=== PATIENT | female | born 1955 | race Caucasian/White ===

== ENCOUNTER 2018-12-26 10:57 | Day surgery (SDC) | payer OTHER ==
[~2018-12-26 10:57] MED LIST: CEFAZOLIN 2 Gram 2 GM/50 ML BAG IVPB ONE; CELECOXIB 100 MG CAPSULE PO ONE; FAMOTIDINE 20MG TABLET PO ONE; MECLIZINE 25 MG TABLET PO ONE; METOCLOPRAMIDE 10 MG TABLET PO ONE; VANCOMYCIN HCL 1,000 MG in DEXTROSE 5 % IN WATER 250 ML IVPB ONE
[2018-12-26] MEDS ORDERED: KETAMINE HCL 100MG/1ML VIAL INJ ONE (10:58)
[2018-12-26] MEDS ORDERED: 0.9 % SODIUM CHLORIDE 10 ML VIAL IVP ONE (10:58)
[2018-12-26] MEDS ORDERED: DEXAMETHASONE 4 MG/ML 1ML VIAL IVP ONE (10:58)
[2018-12-26] MEDS ORDERED: MIDAZOLAM HCL 2MG/2ML VIAL IV ONE (10:58)
[2018-12-26] MEDS ORDERED: ROPIVACAINE HCL (NAROPIN) /PF 5MG/ML 20ML VIAL IV ONE (10:58)
[2018-12-26] MEDS ORDERED: PROPOFOL 10 MG/ML VIAL IV ONE (10:58)
[2018-12-26] MEDS ORDERED: TRANEXAMIC ACID 1,000 MG/10 ML ML IV ONE ×2 (10:58)
[2018-12-26 12:04] LABS: ABO GROUP O; ANTIBODY SCREEN NEGATIVE (NEGATIVE); RH TYPE POSITIVE
[2018-12-26] MEDS ORDERED: BUPIVACAINE 0.5% W/EPI MPF 30 ML VIAL SQ ONE (14:16)
[2018-12-26] MEDS ORDERED: TRAMADOL HCL 50 MG TABLET PO PRN (15:32)
[2018-12-26] MEDS ORDERED: ZOLPIDEM TARTRATE 5 MG TABLET PO PRN (15:32)
[2018-12-26] MEDS ORDERED: ACETAMINOPHEN W/ CODEINE 300MG/60MG TABLET PO PRN ×2 (15:32)
[2018-12-26] MEDS ORDERED: KETOROLAC 30 MG/ML VIAL IVP PRN ×2 (15:32)
[2018-12-26] MEDS ORDERED: HYDROMORPHONE HCL 2 MG/ML VIAL IM PRN (15:32)
[2018-12-26] MEDS ORDERED: MAGNESIUM HYDROXIDE 30 ML UDC PO PRN (15:32)
[2018-12-26] MEDS ORDERED: NALOXONE 0.4 MG/1 ML VIAL IVP PRN (15:32)
[2018-12-26] MEDS ORDERED: DIPHENHYDRAMINE HCL 25 MG CAPSULE PO PRN (15:32)
[2018-12-26] MEDS ORDERED: AL HYDROX/MAG HYDROX 30ML UD PO PRN (15:32)
[2018-12-26] MEDS ORDERED: BISACODYL 10 MG SUPP RC PRN (15:32)
[2018-12-26] MEDS ORDERED: ACETAMINOPHEN 325 MG TAB PO PRN (15:32)
[2018-12-26] MEDS: CEFAZOLIN 2 Gram 2 GM/50 ML BAG IVPB SCH (20:29)
[2018-12-26] MEDS: HYDROCODONE/APAP 10/325 TABLET PO PRN (20:29)
[2018-12-26] MEDS: DOCUSATE SODIUM 100 MG CAPSULE PO SCH (21:46)
[2018-12-26] MEDS: ONDANSETRON HCL IV 4 MG/2 ML VIAL IVP PRN (23:28)
[2018-12-26] MEDS: POTASSIUM CHLORIDE/D5-0.9%NACL 20 MEQ/1,000 ML BAG IV SCH (23:31)
[2018-12-27] MEDS: HYDROCODONE/APAP 10/325 TABLET PO PRN ×5 (00:36→15:31)
[2018-12-27] MEDS: CEFAZOLIN 2 Gram 2 GM/50 ML BAG IVPB SCH ×2 (04:45→12:27)
[2018-12-27 07:00] LABS: HEMATOCRIT 37.1 % (35.0-47.0); HEMOGLOBIN 11.5 gm/dl (11.6-16.0)
[2018-12-27] MEDS ORDERED: PATIENT OWN MED: LANSOPRAZOLE 30 MG PO SCH (07:00)
[2018-12-27 07:15] LABS: BLOOD UREA NITROGEN 13 mg/dL (8-23); CREATININE 0.7 mg/dL (0.5-0.9); EST GLOMERULAR FILTRATION RATE > 60 mL/min; GLUCOSE,RANDOM 148 mg/dL (74-109)
[2018-12-27] MEDS: POTASSIUM CHLORIDE/D5-0.9%NACL 20 MEQ/1,000 ML BAG IV SCH ×2 (08:37→10:39)
--- NOTE | 2018-12-27 08:43 | Rehab Evaluation ---
Patient Information - Patient Information Diagnosis: OA L knee Ordered Treatment: OT Evaluate and Treat Status: Initial Evaluation Surgery: Yes (L TKA) Date of Surgery: 12/26/18 Past Medical/Surgical Hx: PAST MEDICAL/SURGICAL HISTORY Past Surgical History HERNIA REPAIR COLON RESECTION D/T DIVERTICULITIS C SECTION C SCOPES PMH - Respiratory Hx Respiratory Disorders Yes Hx Bronchitis Yes: HX OF PMH - Cardiovascular Hx Cardiovascular Disorders Yes Hx Hypertension Yes: ON MEDS WITH GOOD CONTROL Exercise Tolerance Fair PMH - Neuro Hx Neurological Disorders No PMH - GI Hx Gastrointestinal Disorders Yes Hx Diverticulitis Yes: COLON RESECTION D/T THIS Hx Gastroesophageal Reflux Yes: ON MEDS PMH - Hx Genitourinary Disorders No Hx Age of Menopause 51 PMH - Endocrine Hx Endocrine Disorders No Hx Diabetes No Hx Thyroid Disease No PMH - Musculoskeletal Hx Musculoskeletal Disorders Yes Hx Arthritis Yes: KNEES AND SPINE PMH - Psych Hx Psychiatric Problems No PMH - Hematology/Oncology Hx Hematology/Oncology No Disorders Premorbid Status: Detail (Prior to admit, Pt was indep. with all I/ADLs, doing office work, and driving.) Social History: Detail (The patient lives with her spouse in a 2-level home, but reports she will be staying on the main level initially upon DC and sleeping in a recliner chair. There is 1 CHELLY and R handrail. The patient has a walk-in shower with a small lip, a shower chair, a hand-held shower hose, and a raised toilet. She has (2) standard walkers, one on the main level and one upstairs.) Precautions: [place], Fall, Other (WBAT L knee) - Time With Patient Total Time Spent With Patient (Min): 28 ((1) eval) Treatment Procedures: Detail (OT eval: low complexity) Subjective Information - Subjective Information Per Patient (Pt agreeable to OT eval and Tx) Objective Data - Pain Pain Present: No - Mental Status Patient Orientation: Oriented x3 - Visual Perception Appears within normal limits for therapeutic activities - ROM Within normal limits - Strength/Tone Within normal limits - Coordination Appears within normal limits for therapeutic activities - Bed Mobility Independent (supine >< EOB) - Transfers Independent (EOB >< bedside chair with FWW and CGA, MIN verbal instruction for safe technique.) - Balance Balance Sitting: Good Balance Standing: Fair - Sensation Intact - ADL's/IADL's Detail (UB dress with indep. LB dress (underwear, pants, socks, shoes) with MOD I and verbal instruction for modified technique d/t knee pain and unwillingness to bend at knee. OT educ. Pt on importance of using/bending R knee during functional tasks, Pt verbalizes understanding but reports her will assist with dressing at home. OT educ. Pt on modified techniques for kitchen, bathroom, and home safety, Pt verbalizes understanding.) Therapy Assessment - Therapy Assessment Detail (Pt completes self-cares with MIN assist overall but is limited by pain and fear of pain - reports her will assist as needed upon DC. Pt verbalizes understanding of benefits to using R knee during functional tasks despite minimal use and ROM during eval.) Problem List - Problem List Occupational Therapy Problem List: Detail (No further OT needs identified.) Goals - Goals Occupational Therapy Goals: No further OT needs/goals identified. DC inpatient OT services. Prognosis - Prognosis Good Plan - Plan Occupational Therapy Plan: No further inpatient OT needs identified. DC inpatient OT services. Recommend DC home with spouse assist upon medical stability. Thank you for this referral.
[2018-12-27] MEDS ORDERED: RIVAROXABAN 10 MG TABLET PO SCH (10:00)
[2018-12-27] MEDS ORDERED: MULTIVITAMINS/MINERALS TABLET PO SCH (10:00)
[2018-12-27] MEDS ORDERED: PATIENT OWN MED: LOSARTAN 50 MG PO SCH (10:00)
[2018-12-27] MEDS ORDERED: CHOLECALCIFEROL 1,000 UNIT TABLET PO SCH (10:00)
[2018-12-27] MEDS ORDERED: FERROUS SULFATE 325 MG TAB PO SCH (10:00)
--- NOTE | 2018-12-27 10:00 | Operative Note ---
DATE OF SURGERY: 12/26/2018 PREOPERATIVE DIAGNOSIS: End-stage arthrosis of the left knee. POSTOPERATIVE DIAGNOSIS: End-stage arthrosis of the left knee. OPERATION: Cemented left total knee arthroplasty using Crocker [employer]hew Sintia II components with a size 4 Oxinium femur, a size 3 stem tibia baseplate, a 9 mm lipped highly crosslinked tibial insert. The patella was not resurfaced because it was too thin. Staff Surgeon: Mk Ness MD Anesthesia: Spinal. PREPARATION: Chloraprep. INDIVIDUAL CONSIDERATIONS: This lady was morbidly obese with a body mass index above 40. She had a very thick soft tissue envelope measuring almost 3 inches up top which required more time and effort for exposure and closure. She also was obese and had a very thin patella which necessitated me not to resurface it because it would have caused fracture of the patella. PROCEDURE: The patient was taken to the operating room, placed supine on the operating room table. She had a successful induction of spinal anesthetic. The left lower extremity was prepped and draped in the usual fashion. The patient had a midline approach to the knee. The limb was elevated and tourniquet was inflated to 300 mmHg. Sharp dissection carried down through skin and subcutaneous tissue. Small veins were coagulated with a Bovie. A medial arthrotomy was performed. The patella was everted and the knee was flexed. She has very difficult exposure because she had almost 3 inches of fat up top. Once in the knee, the patient had exposed bone in the medial and in some areas of the patellofemoral compartment. Fat pad was resected, ACL was sacrificed, provisional anterior meniscectomies were performed. The capsule was released from the medial proximal tibia. The initial femoral pilot plant research technician hole was then made freehand. The intramedullary femoral cutting jig was placed. It was cut in 7.0 degrees of valgus and adjusted for rotation and secured with pins for a 10 mm resection. The initial transverse cut was then made. The skin guide was placed in the anterior and posterior pilot plant research technician holes. It was found that a size 4 would be appropriate. The anterior and posterior cuts followed by chamfer cuts were made. Osteophytes removed, and a size 4 trial was placed and found to fit well. The tibia was brought forward, and the remainder of the meniscal remnants removed with a Bovie. The extraarticular tibial cutting jig was placed. It was cut in neutral with a 3-degree AP slope. It was set for a 9 mm resection keyed off the high lateral side and secured with pins. When cutting the tibia, care was taken to preserve the PCL insertion on the tibia. After removing osteophytes, I could fit a size 3. It was adjusted for rotation and secured with pins. With a 9 mm trial and femoral trial, there was excellent motion and stability, ligamentous balance, rotation alignment were thought to be normal. Femoral pilot plant research technician holes were impacted, and the tri-flange tibial stamp was impacted and these trial components were removed. The patient had an extremely thin patella, roughly only 17-18 mm. Even if I compensated for bone loss, I probably would only be able to leave if I was joão 10 mm of bone but since she was morbidly obese and it was small, I was worried about that causing fracture, so I aborted doing patella resurfacing and just trimmed osteophytes. The tourniquet was let down briefly to get bleeders posteriorly and then placed back up again. The knee was then thoroughly irrigated out with pulsatile Betadine and saline to remove any visual or palpable debris. Bony surfaces were then dried. A size 3 stem tibia baseplate was cemented into place followed by impaction of the 9 mm lipped tibial insert followed by cementing in the size 4 Oxinium femur. The implant surfaces were compressed, excess cement was removed, and after the cement had set, there was excellent motion and stability, ligamentous balance, rotation alignment, and patellofemoral tracking were normal. No lateral release was required. Again thorough irrigation. Tourniquet was let down. Hemostasis was obtained with a Bovie. The periosteum and capsule and skin and subcu were infiltrated with 30 mL of 0.5% Marcaine with epinephrine. The capsule was then closed with a running #2 quill, subcu was closed in multiple layers of 0 quill, skin was closed with shayan. I mixed 1 g of tranexamic acid with 30 mL of saline and injected into the knee through a sterile 18-gauge needle and a sterile bulky compressive CATARINO-type dressing was applied. The patient tolerated the procedure well. Needle and sponge counts were correct. Estimated blood loss was minimal, and she was taken back to recovery in good condition. There were no complications. EMMY
[2018-12-27] MEDS: ONDANSETRON HCL IV 4 MG/2 ML VIAL IVP PRN (10:07)
[2018-12-27] MEDS: DOCUSATE SODIUM 100 MG CAPSULE PO SCH (10:07)
--- NOTE | 2018-12-27 11:14 | Rehab Evaluation ---
Patient Information - Patient Information Diagnosis: L knee DJD Ordered Treatment: PT Evaluate and Treat Status: Initial Evaluation Surgery: Yes (L TKA) Date of Surgery: 12/26/18 Past Medical/Surgical Hx: PAST MEDICAL/SURGICAL HISTORY Past Surgical History HERNIA REPAIR COLON RESECTION D/T DIVERTICULITIS C SECTION C SCOPES PMH - Respiratory Hx Respiratory Disorders Yes Hx Bronchitis Yes: HX OF PMH - Cardiovascular Hx Cardiovascular Disorders Yes Hx Hypertension Yes: ON MEDS WITH GOOD CONTROL Exercise Tolerance Fair PMH - Neuro Hx Neurological Disorders No PMH - GI Hx Gastrointestinal Disorders Yes Hx Diverticulitis Yes: COLON RESECTION D/T THIS Hx Gastroesophageal Reflux Yes: ON MEDS PMH - Hx Genitourinary Disorders No Hx Age of Menopause 51 PMH - Endocrine Hx Endocrine Disorders No Hx Diabetes No Hx Thyroid Disease No PMH - Musculoskeletal Hx Musculoskeletal Disorders Yes Hx Arthritis Yes: KNEES AND SPINE PMH - Psych Hx Psychiatric Problems No PMH - Hematology/Oncology Hx Hematology/Oncology No Disorders Premorbid Status: Detail (Prior to admit, Pt was indep. with all I/ADLs, working , and driving.) Social History: Detail (The patient lives with her spouse in a 2-level home, although she reports she will be staying on the main level initially upon DC and sleeping in a recliner chair. There is 1 CHELLY and R handrail. The patient has a walk-in shower with a small lip, a shower chair, a hand-held shower, and a raised toilet. She has (2) standard walkers, one on the main level and one upstairs.) Precautions: [place], Fall, Other (WBAT on the L LE) - Time With Patient Total Time Spent With Patient (Min): 30 Treatment Procedures: Detail (Initial Evaluation, gait training) Subjective Information - Subjective Information Per Patient (The patient had complaints of nausea and vomitted prior to the beginning of PT treatment.) Objective Data - Mental Status Patient Orientation: Oriented x3 - Visual Perception Appears within normal limits for therapeutic activities - ROM Not within normal limits (The patient's L knee AROM was limited as to be expected following surgery. All other AROM is WNL.) - Strength/Tone Not within normal limits (The patient's L LE strength was not tested s/p surgery however weakness was present functionally in bilateral quads and hip flexors (ie: patient had weak quad contraction and was unable to lift L LE into bed without using R LE to lift LE.) - Bed Mobility Independent (Independent supine to and from sit transfer with use of R LE to lift L LE and scooting up in bed.) - Transfers Independent (The patient was independent with sit to and from stand transfer.) - Balance Balance Sitting: Good Balance Standing: Good - Sensation Intact - Gait Detail (The patient ambulated with 2 wheeled walker WBAT on the L LE independently a distance of 100 feet x 1. The patient ambulated on stairs with use of cane and railing using proper technique with supervision for safety only. ) Therapy Assessment - Therapy Assessment Detail (The patient was independent with bed mobility, transfers and ambulation. The patient has met all inpatient goals and is discharged from inpatient PT.) Patient Education - Patient Education Teaching Topic: Exercise/Activity (The patient is independent with TKA HEP including: seated heel slides, quad sets, gluteal sets, hamstring sets, SLR with use of cane to lift L LE, ankle pumps.) Response: Return Demonstration Teaching Method: Demonstration, Handout Teaching Recipient: Patient Barriers To Learning: Age Related Problem List - Problem List Physical Therapy Problem List: Detail ( Decreased L knee AROM and strength as to be expected following surgery.) Goals - Goals Physical Therapy Goals: All inpatient PT goals have been met. Patient is to continue with Home PT. Prognosis - Prognosis Good Plan - Plan Physical Therapy Plan: The patient is discharged from inpatient PT and is to continue with Home PT.
== END 2018-12-27 16:17 | disposition home or self-care (01) ==
LOC: SUR 10:57 → MEDSURG 16:13 → SUR 12-27 16:17
PROVIDERS: ATTEND Orthopaedic Surgery
DX: M17.12 Unilateral primary osteoarthritis, left knee (principal); I10 Essential (primary) hypertension; I25.2 Old myocardial infarction; K21.9 Gastro-esophageal reflux disease without esophagitis; E66.01 Morbid (severe) obesity due to excess calories
CPT/HCPCS: 01402; 27447; 64447; 85018; 85014; 80048; 86900; 86901; 86850; J1885; J2405 ×2; J3370; J1170; J0690 ×2; J3490 ×4; J2795; 76942; C1776; J3480; J7060

== ENCOUNTER 2019-04-17 08:39 | Day surgery (SDC) | payer OTHER ==
[~2019-04-17 08:39] MED LIST changes: +VANCOMYCIN 1GM/200ML PREMIX 1 GM/200 ML PIGGYBACK IVPB ONE; -VANCOMYCIN HCL 1,000 MG in DEXTROSE 5 % IN WATER 250 ML IVPB ONE
[2019-04-17] MEDS ORDERED: ROPIVACAINE HCL (NAROPIN) /PF 5MG/ML 20ML VIAL IV ONE (08:40)
[2019-04-17] MEDS ORDERED: 0.9 % SODIUM CHLORIDE 10 ML VIAL IVP ONE (08:40)
[2019-04-17] MEDS ORDERED: PROPOFOL 10 MG/ML VIAL IV ONE (08:40)
[2019-04-17] MEDS ORDERED: DEXAMETHASONE 4 MG/ML 1ML VIAL IVP ONE (08:40)
[2019-04-17] MEDS ORDERED: MIDAZOLAM HCL 2MG/2ML VIAL IV ONE (08:40)
[2019-04-17] MEDS ORDERED: TRANEXAMIC ACID 1,000 MG/10 ML ML IV ONE ×2 (08:40)
[2019-04-17] MEDS ORDERED: KETAMINE HCL 100MG/1ML VIAL INJ ONE (08:40)
[2019-04-17] MEDS ORDERED: RINGERS SOLUTION,LACTATED 1,000 ML IV ONE ×2 (09:30→12:41)
[2019-04-17 09:35] LABS: ABO GROUP O; ANTIBODY SCREEN NEGATIVE (NEGATIVE); RH TYPE POSITIVE
[2019-04-17] MEDS ORDERED: BUPIVACAINE 0.5% W/EPI MPF 30 ML VIAL SQ ONE (12:34)
[2019-04-17] MEDS ORDERED: ACETAMINOPHEN 325 MG TAB PO PRN (14:15)
[2019-04-17] MEDS ORDERED: DIPHENHYDRAMINE HCL 25 MG CAPSULE PO PRN (14:15)
[2019-04-17] MEDS ORDERED: HYDROMORPHONE HCL 2 MG/ML VIAL IM PRN (14:15)
[2019-04-17] MEDS ORDERED: TRAMADOL HCL 50 MG TABLET PO PRN (14:15)
[2019-04-17] MEDS ORDERED: BISACODYL 10 MG SUPP RC PRN (14:15)
[2019-04-17] MEDS ORDERED: MAGNESIUM HYDROXIDE 30 ML UDC PO PRN (14:15)
[2019-04-17] MEDS ORDERED: ONDANSETRON HCL IV 4 MG/2 ML VIAL IVP PRN (14:15)
[2019-04-17] MEDS ORDERED: ZOLPIDEM TARTRATE 5 MG TABLET PO PRN (14:15)
[2019-04-17] MEDS ORDERED: KETOROLAC 30 MG/ML VIAL IVP PRN ×2 (14:15)
[2019-04-17] MEDS ORDERED: AL HYDROX/MAG HYDROX 30ML UD PO PRN (14:15)
[2019-04-17] MEDS ORDERED: ACETAMINOPHEN W/ CODEINE 300MG/60MG TABLET PO PRN ×2 (14:15)
[2019-04-17] MEDS ORDERED: NALOXONE 0.4 MG/1 ML VIAL IVP PRN (14:15)
[2019-04-17] MEDS: HYDROCODONE/APAP 10/325 TABLET PO PRN ×2 (18:35→23:28)
[2019-04-17] MEDS: CEFAZOLIN 2 Gram 2 GM/50 ML BAG IVPB SCH (20:15)
[2019-04-17] MEDS: POTASSIUM CHLORIDE/D5-0.9%NACL 20 MEQ/1,000 ML BAG IV SCH (20:19)
[2019-04-17] MEDS: DOCUSATE SODIUM 100 MG CAPSULE PO SCH (21:35)
[2019-04-18] MEDS: CEFAZOLIN 2 Gram 2 GM/50 ML BAG IVPB SCH ×2 (03:09→11:17)
[2019-04-18] MEDS: POTASSIUM CHLORIDE/D5-0.9%NACL 20 MEQ/1,000 ML BAG IV SCH ×2 (03:11→06:27)
[2019-04-18] MEDS: HYDROCODONE/APAP 10/325 TABLET PO PRN ×3 (05:00→14:02)
[2019-04-18 06:53] LABS: HEMATOCRIT 36.6 % (35.0-47.0); HEMOGLOBIN 11.4 gm/dl (11.6-16.0)
[2019-04-18] MEDS ORDERED: PATIENT OWN MED: LANSOPRAZOLE 30 MG PO SCH (07:00)
[2019-04-18 07:07] LABS: BLOOD UREA NITROGEN 12 mg/dL (8-23); CREATININE 0.6 mg/dL (0.5-0.9); EST GLOMERULAR FILTRATION RATE > 60 mL/min; GLUCOSE,RANDOM 160 mg/dL (74-109)
[2019-04-18] MEDS: DOCUSATE SODIUM 100 MG CAPSULE PO SCH (09:45)
[2019-04-18] MEDS ORDERED: RIVAROXABAN 10 MG TABLET PO SCH (10:00)
[2019-04-18] MEDS ORDERED: PATIENT OWN MED: LOSARTAN 50 MG PO SCH (10:00)
[2019-04-18] MEDS ORDERED: FERROUS SULFATE 325 MG TAB PO SCH (10:00)
[2019-04-18] MEDS ORDERED: VITAMIN D 1000 UNIT PO SCH (10:00)
--- NOTE | 2019-04-18 10:54 | Rehab Evaluation ---
Patient Information - Patient Information Diagnosis: R knee OA Ordered Treatment: OT Evaluate and Treat Status: Initial Evaluation Surgery: Yes (R TKA) Date of Surgery: 04/17/19 Past Medical/Surgical Hx: PAST MEDICAL/SURGICAL HISTORY Past Surgical History KA HERNIA REPAIR COLON RESECTION D/T DIVERTICULITIS C SECTION C SCOPES PMH - Respiratory Hx Respiratory Disorders Yes Hx Bronchitis Yes: HX OF PMH - Cardiovascular Hx Cardiovascular Disorders Yes Hx Hypertension Yes: ON MEDS WITH GOOD CONTROL Exercise Tolerance Fair PMH - Neuro Hx Neurological Disorders No PMH - GI Hx Gastrointestinal Disorders Yes Hx Diverticulitis Yes: COLON RESECTION D/T THIS Hx Gastroesophageal Reflux Yes: ON MEDS PMH - Hx Genitourinary Disorders No Hx Age of Menopause 51 PMH - Endocrine Hx Endocrine Disorders No Hx Diabetes No Hx Thyroid Disease No PMH - Musculoskeletal Hx Musculoskeletal Disorders Yes Hx Arthritis Yes: KNEES AND SPINE PMH - Psych Hx Psychiatric Problems No PMH - Hematology/Oncology Hx Hematology/Oncology No Disorders Premorbid Status: Detail (Prior to surgery, the patient was independent with all ADLs and functional mobility, driving and working. She is now retired. L TKA in December,.) Social History: Detail (The patient lives with her in a 2-story home with 1 step at the entrance. She plans to stay on the main floor until she can negotiate stairs to her upstairs main bed/bath. The stairs to her 2nd level have a left side hand-rail. The bathroom is equipped with a walk-in shower, shower chair, grab bar, and hand-held shower hose, and a raised toilet seat. She has a walker and single-point cane.) Precautions: [place], Fall, Other (WBAT R LE) - Time With Patient Total Time Spent With Patient (Min): 22 (1 eval) Treatment Procedures: Detail (OT eval: low complexity) Subjective Information - Subjective Information Per Patient (Ok to see per CHELLE Seals. Pt agreeable to OT eval.) Objective Data - Pain Pain Present: Yes (02/19, CHELLE Seals at bedside discussing pain meds post session) - Mental Status Patient Orientation: Oriented x3 - Visual Perception Appears within normal limits for therapeutic activities - ROM Within normal limits - Strength/Tone Within normal limits - Coordination Appears within normal limits for therapeutic activities - Bed Mobility Independent (Supine to EOB) - Transfers Independent (Sit to/from stand from low surfaces to walker.) - Balance Balance Sitting: Good Balance Standing: Fair (Standing pant mgmt with occassional alternating uni support on walker.) - Sensation Intact - Gait Detail (Functional mobility within bedroom with FWW, good safety awareness and use of walker.) - ADL's/IADL's Detail (Pt demos good use of adaptive technique for LB dressing, reports her spouse assisted with don/doff socks after her previous L TKA in December and plans to have him assist again. OT educates Pt on kitchen, bathroom, and laundry safety and Pt verbalizes understanding.) Therapy Assessment - Therapy Assessment Detail (Patient tolerates eval well, demos good balance, safety awareness and use of modified techniques for ADLs and functional TFs. No concerns re: home DC with spouse assist as needed.) Patient Education - Patient Education Teaching Topic: Other (General safety and modified techniques.) Response: Return Demonstration, Verbalize Understanding Teaching Method: Discussion, Demonstration Teaching Recipient: Patient Barriers To Learning: None Problem List - Problem List Occupational Therapy Problem List: Detail (No further skilled IP OT needs identified.) Goals - Goals Occupational Therapy Goals: No further skilled IP OT needs/goals identified. Prognosis - Prognosis Good Plan - Plan Occupational Therapy Plan: No further skilled IP OT needs identified, DC OT services. Thank you for this referral.
--- NOTE | 2019-04-18 11:22 | Rehab Evaluation ---
Patient Information - Patient Information Diagnosis: R knee OA Ordered Treatment: PT Evaluate and Treat Status: Initial Evaluation Surgery: Yes (R TKA) Date of Surgery: 04/17/19 Past Medical/Surgical Hx: PAST MEDICAL/SURGICAL HISTORY Past Surgical History HERNIA REPAIR COLON RESECTION D/T DIVERTICULITIS C SECTION C SCOPES PMH - Respiratory Hx Respiratory Disorders Yes Hx Bronchitis Yes: HX OF PMH - Cardiovascular Hx Cardiovascular Disorders Yes Hx Hypertension Yes: ON MEDS WITH GOOD CONTROL Exercise Tolerance Fair PMH - Neuro Hx Neurological Disorders No PMH - GI Hx Gastrointestinal Disorders Yes Hx Diverticulitis Yes: COLON RESECTION D/T THIS Hx Gastroesophageal Reflux Yes: ON MEDS PMH - Hx Genitourinary Disorders No Hx Age of Menopause 51 PMH - Endocrine Hx Endocrine Disorders No Hx Diabetes No Hx Thyroid Disease No PMH - Musculoskeletal Hx Musculoskeletal Disorders Yes Hx Arthritis Yes: KNEES AND SPINE PMH - Psych Hx Psychiatric Problems No PMH - Hematology/Oncology Hx Hematology/Oncology No Disorders Premorbid Status: Detail (Prior to surgery, the patient was independent with all ADLs and functional mobility, driving and working. She is now retired. L TKA in December,.) Social History: Detail (The patient lives with her in a 2-story home with 1 step at the entrance. She plans to stay on the main floor until she can negotiate stairs to her upstairs main bed/bath. The stairs to her 2nd level have a left side hand-rail. The bathroom is equipped with a walk-in shower, shower chair, grab bar, and hand-held shower hose, and a raised toilet seat. She has a walker and single-point cane.) Precautions: [place], Fall, Other (WBAT R LE) - Time With Patient Total Time Spent With Patient (Min): 30 Treatment Procedures: Detail (PT initial evaluation low complexity, gait training) Subjective Information - Subjective Information Per Patient (The patient had no complaints of R knee pain.) Objective Data - Mental Status Patient Orientation: Oriented x3 - Visual Perception Appears within normal limits for therapeutic activities - ROM Not within normal limits (The patient's R knee AROM was limited s/p surgery as to be expected. All other AROM is WNL.) - Strength/Tone Not within normal limits (The patient's R LE strength was not tested s/p surgery however was WFL, patient was able to complete a SLR. The patient's L LE strength was WFL.) - Bed Mobility Independent (The patient was independent wtih sit to supine transfer.) - Transfers Independent (The patient was independent with sit to and from stand transfer.) - Balance Balance Sitting: Good Balance Standing: Good - Sensation Intact - Gait Detail (The patient ambulated with standard walker 120 feet WBAT on R LE independently. The patient ambulated on 3 steps with use of one railing and cane using proper technique with supervision for safety.) Therapy Assessment - Therapy Assessment Detail (The patient was independent with bed mobility, transfers and ambulation and has met all inpatient PT goals. The patient is to receive Out patient PT.) Patient Education - Patient Education Teaching Topic: Exercise/Activity (The patient was independent with TKA HEP including: SLR, quad sets, hamstring sets, seated heel slides, ankle pumps and gluteal sets.) Response: Return Demonstration Teaching Method: Discussion, Demonstration, Handout Teaching Recipient: Patient Barriers To Learning: None Problem List - Problem List Physical Therapy Problem List: Detail (Decreased R knee AROM and strength as to be expected following surgery.) Occupational Therapy Problem List: Detail (No further skilled IP OT needs identified.) Goals - Goals Physical Therapy Goals: All inpatient PT goals have been met. Occupational Therapy Goals: No further skilled IP OT needs/goals identified. Prognosis - Prognosis Good Plan - Plan Physical Therapy Plan: The patient is discharged from inpatient PT and is to receive Home PT services. Occupational Therapy Plan: No further skilled IP OT needs identified, DC OT services. Thank you for this referral.
--- NOTE | 2019-04-20 13:31 | Operative Note ---
DATE OF SURGERY: 04/17/2019 DATE OF SURGERY: PREOPERATIVE DIAGNOSIS: End-stage arthrosis of the right knee. POSTOPERATIVE DIAGNOSIS: End-stage arthrosis of the right knee. OPERATION: Cemented right total knee arthroplasty using [employer] Sintia II components with a size 4 Oxinium femur, a size 3 stemmed tibia baseplate, a 9 mm lipped highly crosslinked tibial insert. The patella was not resurfaced because it was too thin. STAFF SURGEON: Mk Ness MD ANESTHESIA: Spinal. PREPARATION: Chloraprep. INDIVIDUAL CONSIDERATIONS: None. ROD AND TUBE STRAIGHTENER: Mrs. Jami Pond PROCEDURE: The patient was taken to the operating room, placed supine on the operating room table. She had a successful induction with a spinal anesthetic. The right lower extremity was prepped and draped in the usual fashion. The patient had a midline approach to the knee. The limb was elevated and tourniquet was inflated to 250 mmHg. Sharp dissection carried down through skin and subcutaneous tissue. Small veins were coagulated with a Bovie. A medial arthrotomy was performed. The patella was everted and the knee was flexed. She had exposed bone in the medial and patellofemoral compartments, primarily the notch and on the medial component. Fat pad was resected, ACL was sacrificed, and provisional anterior meniscectomies were performed. The capsule was released from the medial proximal tibia. The initial femoral timber hewer hole was then made freehand. The intramedullary femoral cutting jig was placed. It was cut in 7.0 degrees of valgus and adjusted for rotation and secured with pins for a 10 mm resection. The initial transverse cut was then made. The skin guide was placed in the anterior and posterior timber hewer holes. It was found that a size 4 would be appropriate but I had to translate it anteriorly 2 mm to prevent notching. The anterior and posterior cuts followed by chamfer cuts were made. Osteophytes removed, and a size 4 trial was placed and found to fit well. The tibia was brought forward, and the remainder of the meniscal remnants removed with a Bovie. The extraarticular tibial cutting jig was placed. It was cut in neutral with a 3-degree AP slope. It was set for a 9 mm resection keyed off the high lateral side and secured with pins. When cutting the tibia, care was taken to preserve the PCL insertion on the tibia. After removing osteophytes, I could easily fit a size 3 baseplate. It was adjusted for rotation and secured with pins. With a 9 mm trial and femoral trial, there was excellent motion and stability, ligamentous balance, and rotation alignment were thought to be normal. The trial components were removed. The tourniquet was let down briefly to get bleeders posteriorly and then placed back up again. Then thorough irrigation with pulsatile Betadine and saline to remove any visual or palpable debris. Bony surfaces were then dried. A size 3 stemmed tibia baseplate was cemented into place followed by impaction of the 9 mm lipped tibial insert followed by cementing in the size 4 Oxinium femur. Again, the patella was way too thin. It measured 17-18 mm. She was obese and there was just no way I was going to resurface this because it most likely would result in fracture. After the cement had set, there was excellent motion and stability, ligamentous balance, rotation alignment, and patellofemoral tracking were normal. I did remove osteophytes off the patella. After irrigation, I infiltrated the skin and subcu and periosteum with 30 mL of 0.5% Marcaine with epinephrine. Tourniquet was let down. Hemostasis was obtained with a Bovie. The capsule as then closed with a running #2 quill, subcu was closed with multiple layers of 0 quill, skin was closed with shayan. The patient had 1 g of tranexamic acid mixed with 30 mL of saline injected into the knee through a sterile 18-gauge needle, and a sterile bulky compressive dressing was applied. The patient tolerated the procedure well. Needle and sponge counts were correct. Estimated blood loss was minimal, and she was taken back to recovery in good condition. There were no complications. EMMY
== END 2019-04-18 14:15 | disposition home or self-care (01) ==
LOC: SUR 08:39 → MEDSURG 15:04 → SUR 04-18 14:15
PROVIDERS: ATTEND Orthopaedic Surgery
DX: M17.11 Unilateral primary osteoarthritis, right knee (principal); I10 Essential (primary) hypertension; E66.9 Obesity, unspecified; K21.9 Gastro-esophageal reflux disease without esophagitis
CPT/HCPCS: 76942; 80048; 85014; 85018; 86850; 86900; 86901; C1776; J1885; J3370; J3480; J3490; J7120